=== PATIENT | male | born 1950 | race Two or more races ===

== ENCOUNTER 2016-10-19 08:46 | Emergency (ER) | payer BC, MEDICAID ==
[~2016-10-19] VITALS: Ht 165.1 cm; Wt 65.8 kg
[~2016-10-19 08:46] MED LIST: ASPI81TA2 PO; Benazepril Hcl PO; FLUT1DIS28 IH; METF500T PO; NICO1PAT28 TD; PRED20TA PO
[2016-10-19] MEDS ORDERED: ALBUTEROL FS 2.5 MG/3 ML VIAL.NEB NEB ONE (09:00)
[2016-10-19] MEDS ORDERED: IPRATROPIUM NEB FS 0.5 MG/2.5 ML AMPUL.NEB NEB ONE (09:00)
[2016-10-19] MEDS ORDERED: predniSONE 20 MG TABLET PO ONE (09:00)
[2016-10-19] MEDS ORDERED: IPRATROPIUM NEB FS 0.5 MG/2.5 ML AMPUL.NEB ONE (09:05)
[2016-10-19] MEDS ORDERED: ALBUTEROL FS 2.5 MG/3 ML VIAL.NEB ONE ×2 (09:05→09:37)
[2016-10-19] MEDS ORDERED: predniSONE 20 MG TABLET ONE (09:29)
[2016-10-19 10:14] VITALS: BP 131/88
== END 2016-10-19 10:14 | disposition home or self-care (01) ==
LOC: ER 08:48
DX: J45.909 Unspecified asthma, uncomplicated (principal); J44.9 Chronic obstructive pulmonary disease, unspecified; I25.10 Atherosclerotic heart disease of native coronary artery without angina pectoris; I10 Essential (primary) hypertension; E11.9 Type 2 diabetes mellitus without complications; Z87.891 Personal history of nicotine dependence; Z79.82 Long term (current) use of aspirin
CPT/HCPCS: 94640 ×2; 99284; A4606; J7512; Z7610